=== PATIENT | female | born 1960 | race Hispanic/Latino ===

== ENCOUNTER 2023-03-31 11:56 | Day surgery (SDC) | payer OTHER ==
[2023-03-31 11:47] LABS: Absolute Lymphocytes (CBC) 1.8 K/uL (0.7-4.9); Hematocrit 38.8 % (36.0-45.0); Lymphocytes % 32.4 % (15.3-44.8); MCV 89.5 fL (80-100); MPV 6.9 fL (7.6-11.3); Platelets 482 thou/uL (152-406); RBC Red Blood Cell Count 4.33 M/uL (3.86-4.86)
--- NOTE | 2023-03-31 12:04 | RAD REPORT ---
EXAM DESCRIPTION: RAD - Chest Pa And Lat (2 Views) - 03/31/2023 11:51 am CLINICAL HISTORY: Pre op pending cholecystectomy. Hypertension COMPARISON: No comparisons TECHNIQUE: PA and lateral views of the chest were obtained. FINDINGS: The lungs are clear. Heart size is normal and central vasculature is within normal limits. No pleural effusion or pneumothorax seen. No acute bony finding noted. IMPRESSION: No acute cardiopulmonary process.
[2023-03-31 12:10] LABS: Albumin 3.3 g/dL (3.4-5.0); Bilirubin Direct 0.1 mg/dL (0-0.2); Bilirubin Indirect, Calculated 0.4 mg/dL (0.2-0.8); Bilirubin Total 0.5 mg/dL (0.2-1.0); Potassium 4.1 mEq/L (3.5-5.1); Protein, Total 7.1 g/dL (6.4-8.2)
[2023-03-31] MEDS ORDERED: CEFOXITIN SODIUM 1 GM/VIAL ONE (12:11)
[2023-03-31] MEDS ORDERED: Ringers Lactate 1,000 ML IV ONE (12:11)
[2023-03-31] MEDS ORDERED: propofoL 200 MG/20 ML VIAL IV ONE (14:10)
[2023-03-31] MEDS ORDERED: MIDAZOLAM HCL 2 MG/2 ML INJ ONE (14:10)
[2023-03-31] MEDS ORDERED: FENTANYL CITR 100 MCG/2 ML ONE ×2 (14:10→14:45)
[2023-03-31] MEDS ORDERED: ROCURONIUM 50 MG/5 ML VIAL IV ONE (14:10)
[2023-03-31] MEDS ORDERED: ONDANSETRON 4 MG/2 ML VIAL ONE (14:10)
[2023-03-31] MEDS ORDERED: LIDOCAINE 2% MPF 5 ML VIAL ONE (14:10)
[2023-03-31] MEDS ORDERED: EPHEDRINE SULF 50 MG/ML VIAL ONE (14:38)
[2023-03-31] MEDS ORDERED: dexAMETHasone 10 MG/ML VIAL ONE (14:38)
[2023-03-31] MEDS ORDERED: GLYCOPYRROLATE 0.2 MG/ML SYR ONE (14:42)
[2023-03-31] MEDS ORDERED: NEOSTIGMINE 1 MG/ML -10 ML VIAL ONE (14:58)
[2023-03-31] MEDS ORDERED: KETOROLAC 30 MG/ML INJ ONE (14:59)
--- NOTE | 2023-03-31 15:10 | P.BOP ---
Preoperative diagnosis: acute cholecystitis, symptomatic cholelithiasis Postoperative diagnosis: same Primary procedure: Laparoscopic cholecystectomy Estimated blood loss: <10c Specimen: gb Anesthesia: General Complications: None Transferred to: Recovery Room Condition: Good
[2023-03-31 15:27] VITALS: O2SAT 100
[2023-03-31 17:23] VITALS: BP 124/58; TEMP 98
--- NOTE | 2023-03-31 23:19 | OP ---
Date of Procedure: 03/31/2023 Surgeon: Cody Fan MD Preoperative Diagnoses: Acute cholecystitis, symptomatic cholelithiasis. Postoperative Diagnoses: Acute cholecystitis, symptomatic cholelithiasis. Procedure: Laparoscopic cholecystectomy. Anesthesia: General plus local. Complications: None. Estimated Blood Loss: Less than 10 cc. Indication: This is a case of a 62-year-old patient who comes to us with above diagnoses. Fully exp lained the benefits, alternatives, and risks of laparoscopic possible open cholecystectomy, which inc lude, but not limited to, infection, bleeding, damage to adjacent structures, anesthesia complication , choledocholithiasis, bile leak, pancreatitis, OR, and even . She also understands this may no t relieve symptoms. She might need more than one surgical intervention. She understood, signed the consent. Procedure In Detail: The patient was brought to the operating room, placed in supine position. Anes thesia was done without complication. Abdominal area was prepped and draped in usual sterile fashion . Marcaine 0.5% was injected for local anesthetic, followed by sharp incision of the skin in the inf raumbilical region. Incision was carried down to fascia, which was opened under direct vision. Flavia toneum was encountered, opened under direct vision. Vicryl #1 placed inside the fascia. Darrian troc ar was carefully introduced. No bleeding was obtained. I placed 3 more trocars, 5 mm each one of th em, one in the epigastric area and two in the right upper quadrant under direct visualization. This allowed me to put a grasper in the fundus of the gallbladder, another grasper in the infundibulum, re tracting the gallbladder in the inferolateral fashion exposing the triangle of Calot, obtaining criti don view. Cystic duct and cystic artery were clearly isolated, freed circumferentially, and the conn ection between those and the gallbladder were clearly identified. I proceeded to ligate those by janna mari at least 3 clips proximal and 1 clip distal, ligation in the middle. Same was done with the cysti c artery. A small little branch of the cystic artery was also ligated using same technique. Hepatic arteries and common bile duct were protected at all times. Gallbladder removed from the liver using Bovie cauterizer and removed from abdominal cavity using Endo Catch through umbilical incision. The area was inspected once again, no bile leak. No bleeding. At that moment, I proceeded to remove th e trocars under direct vision. Deflated pneumoperitoneum. Closed the fascia with #1 Vicryl. Irriga juancarlos subcutaneous tissue. Closed that with 3-0 chromic and skin in a subcuticular fashion with 3-0 ch romic and Steri-Strips on the top. Sponge count and instrument counts correct. The patient tolerate d procedure well. The patient was sent to recovery in stable condition. JONY/NORA Voice ID: [id number] Report ID: [id number]
--- NOTE | 2023-03-31 23:22 | DS ---
Date of Discharge: 03/31/2023 Diagnoses: Acute cholecystitis, symptomatic cholelithiasis. Procedure: Laparoscopic cholecystectomy. Disposition: Home. Activity: As tolerated. No heavy lifting. Followup: Follow up in my office in 1 week. Call for appointment at [phone]. Keep area dry for 48 hours, then may shower. Keep Steri-Strips intact. JONY/NORA Voice ID: [id number] Report ID: [id number]
--- NOTE | 2023-04-01 15:31 | EKG ---
Test Date: 2023-03-31 Test Time: 12:36:28 Product Merchandiser: MIRTA MEASUREMENT RESULTS: Intervals: Rate: 59 GA: 130 QRSD: 70 QT: 374 QTc: 370 Wayne: P: 72 GA: 130 QRS: 78 T: 67 INTERPRETIVE STATEMENTS: Sinus bradycardia Otherwise normal ECG No previous ECG available for comparison Electronically Signed On 04-01-23 15:27:47 [employer] by Paul Ann
== END 2023-03-31 16:55 | disposition home or self-care (01) ==
LOC: OR 11:56
PROVIDERS: ATTEND Surgery
PROC: 0FT44ZZ Resection of Gallbladder, Percutaneous Endoscopic Approach (ICD-10-PCS; principal; 2023-03-31 14:00)
DX: K80.10 Calculus of gallbladder with chronic cholecystitis without obstruction (principal); E78.00 Pure hypercholesterolemia, unspecified; F41.9 Anxiety disorder, unspecified; E05.90 Thyrotoxicosis, unspecified without thyrotoxic crisis or storm
CPT/HCPCS: 93005; 85025; 80048; 36415; 80076; 88304; 83690; 71046; 47562; J2704; J2710; J2001; J2250; J3010 ×2; J1100; J0694; J2405; J7120

== ENCOUNTER 2024-03-20 13:39 | Emergency (ER) | payer OTHER ==
--- OUTSIDE RECORDS SUMMARY | 2024-03-20 13:42 | XMS REPORT | Continuity of Care Document ---
Author Name Unknown Address [address] [place] [address] [facility] thconnect Address [address] [place] [address] Care Team Providers Care Lead Software Developer Name Role Phone ELSI CARTY Primary Care Physician Unavailab le TRITSCHLER, KEENAYAL Attending Clinician Unavaila ble TRITSCHLER, CHERYAL Attending Clinician Unavaila ble [email or web address]_S Attending Clinician Unavaila ble Doctor Unassigned, [place] Attending Clinician U navailable Radiology Attending Clinician Unavailable RADIOLOGY Attending Clinician Unavailable [email or web address]_S Admitting Clinician Unavaila ble TRITSCHLER, CHERYAL Admitting Clinician Unavaila ble Payers Payer Name Policy Type Policy Number Effective Date Expirati on Date Source [facility] [id number] 2019 00:00:00 [facility] [id number] 2003 00:00:00 Problems Condition Name Condition Details Condition Category Status Onset Date Resolution Date Last Treatment Date Treating Clinician Comments Source Breast cancer screening by mammogram Breast cancer screening by mammogram Disease Active 10-09 00:00: 00 [facility] Need for vaccinatio n Need for vaccinatio n Disease Active 10-09 00:00: 00 [facility] Screening for malignant neoplasm of the cervix Screening for malignant neoplasm of the cervix Disease Active 10-09 00:00: 00 [facility] Allergies, Adverse Reactions, Alerts Allergy Name Allergy Type Status Severity Reaction(s) Onset Date Inactive Date Treating Clinician Comments Source NO KNOWN ALLERGIE S Drug Class Active [facility] Social History Social Habit Start Date Stop Date Quantity Comments Source [facility] Sexual orientation U niversity [facility] Alcohol intake 2022-12-27 00:00:00 2022-12-27 00:00:00 Current drinker of alcohol (finding) [facility] Alcohol Comment 2022-10-12 00:00:00 2022-10-12 00:00:00 ocassionaly [facility] Tobacco use and exposure 2022-10-12 00:00:00 2022-10-12 00:00:00 Smokeless tobacco non-user [facility] Exposure to SARS-CoV-2 (event) 2021-10-30 00:00:00 2021-11-09 11:01:00 Not sure [facility] History of Social function 2021-10-09 00:00:00 2021-10-09 00:00:00 [facility] Sex Ass[birth year] At 1960 00:00:00 1960 00:00:00 [facility] Smoking Status Start Date Stop Date Source Never smoked tobacco [facility] Medications Ordered Medication Name Filled Medication Name Start Date Stop Date Current Medication? Ordering Clinician Indication Dosage Frequency Signature (SIG) Comments Components Source levothyroxi ne 50 mcg tablet 05-05 00:00: 00 Yes 50ug Take 50 mcg by mouth. [facility] DULoxetine 30 mg capsule 2 00:00: 00 Yes 30mg Take 30 mg by mouth. [facility] fenofibrate 145 mg tablet 1- 00:00: 00 Yes ORAL TAKE 1 TABLET BY MOUTH EVERY DAY. PT NEEDS APPT! [facility] Immunizations Ordered Immunization Name Filled Immunization Name Date Status Comments Source Influenza Virus Vaccine Quad .5 mL IM 6+ MO 2022-01-28 00:00:00 Completed [facility] Influenza Virus Vaccine Quad .5 mL IM 6+ MO (FLUZONE/FLULAVAL/F LUARIX) Unknown Completed [facility] Influenza Virus Vaccine Quad .5 mL IM 6+ MO (FLUZONE/FLULAVAL/F LUARIX) Unknown Completed [facility] Vital Signs Vital Name Observation Time Observation Value Comments S ource Systolic blood pressure 2022-10-12 13:16:00 121 mm[Hg] [facility] Diastolic blood pressure 2022-10-12 13:16:00 79 mm[Hg] [facility] Heart rate 2022-10-12 13:16:00 67 /min [facility] Body temperature 2022-10-12 13:16:00 36.72 Alexandra [facility] Respiratory rate 2022-10-12 13:16:00 18 /min [facility] Body height 2022-10-12 13:16:00 165.1 cm [facility] Body weight 2022-10-12 13:16:00 67.223 kg [facility] BMI 2022-10-12 13:16:00 24.66 kg/m2 [facility] Systolic blood pressure 2021-10-09 13:35:00 121 mm[Hg] [facility] Diastolic blood pressure 2021-10-09 13:35:00 81 mm[Hg] [facility] Heart rate 2021-10-09 13:35:00 65 /min [facility] Respiratory rate 2021-10-09 13:35:00 18 /min [facility] Body height 2021-10-09 13:35:00 165.1 cm [facility] Body weight 2021-10-09 13:35:00 69.514 kg [facility] BMI 2021-10-09 13:35:00 25.50 kg/m2 [facility] Oxygen saturation in Arterial blood by Pulse oximetry 2021-10-09 13:35:00 98 /min [facility] Procedures Procedure Date / Time Performed Performing Clinician Source BI SCREENING TOMOSYNTHESIS BILATERAL 2022-12-27 13:27:48 Jose Salguero [facility] ASSIGNMENT OF BENEFITS 2022-12-27 13:05:05 Docto r Unassigned, [place] [facility] XR LUMBAR SPINE 3 VW 2022-02-15 19:53:51 Blanka Carty [facility] NOTICE OF PRIVACY PRACTICES 2022-02-15 19:21:37 Doctor Unassigned, [place] [facility] ASSIGNMENT OF BENEFITS 2021-11-09 15:56:03 Docto r Unassigned, [place] [facility] Encounters Start Date/Time End Date/Time Encounter Type Admission Type Attending [facility] Care Department Encounter ID Source 2023-10-13 08:00:00 2023-10-13 08:00:00 Outpatient JOSE VELARDE [facility] [id number] [facility] 2023-05-24 00:00:00 2023-05-24 00:00:00 Outpatient GC_GCBZW_Ka diyala_S PRIV PRIV [id number] [facility] 2023-05-03 00:00:00 2023-05-03 00:00:00 Outpatient GC_GCBZW_Ka diyala_S PRIV PRIV [id number] [facility] 2023-05-02 00:00:00 2023-05-02 00:00:00 Outpatient GC_GCBZW_Ka diyala_S PRIV PRIV [id number] [facility] 2023-04-27 00:00:00 2023-04-27 00:00:00 Outpatient GC_GCBZW_Ka diyala_S PRIV PRIV [id number] [facility] 2023-04-20 00:00:00 2023-04-20 00:00:00 Outpatient GC_GCBZW_Ka diyala_S PRIV PRIV [id number] [facility] 2023-02-09 00:00:00 2023-02-09 00:00:00 Outpatient GC_GCBZW_Ka diyala_S PRIV PRIV [id number] [facility] 2023-01-29 00:00:00 2023-01-29 00:00:00 Outpatient GC_GCBZW_Ka diyala_S PRIV PRIV [id number] [facility] 2022-12-27 08:06:12 2022-12-27 23:59:00 Outpatient R JOSE SALGUERO [facility] [id number] [facility] 2022-12-27 08:06:12 2022-12-27 23:59:00 Hospital Encounter Jose Salguero [facility] [id number] [id number] [id number] [facility] 2022-12-27 00:00:00 2022-12-27 00:00:00 Orders Only Doctor Unassigned, [place] [facility] [id number] 350.1.13.10 [id number] [id number] [facility] 2022-10-19 00:00:00 2022-10-19 00:00:00 Outpatient R JOSE SALGUERO [facility] [id number] [facility] 2022-10-12 08:00:00 2022-10-12 08:29:40 Outpatient R JOSE SALGUERO [facility] [id number] [facility] 2022-10-12 08:00:00 2022-10-12 08:29:40 Office Visit Jose [facility]gu[facility] [id number] [id number] [id number] [id number] [facility] 2022-10-11 08:00:00 2022-10-11 08:00:00 Outpatient R JOSE SALGUERO [facility] [id number] [facility] 2022-02-15 13:22:17 2022-02-15 23:59:00 Hospital Encounter Radiology [facility] [id number] 350.1.13.10 4.2.7.2.686 [id number] [facility] 2022-02-15 13:21:48 2022-02-15 13:21:48 Outpatient R RADIOLOGY [facility] [id number] [facility] 2022-02-15 13:21:48 2022-02-15 13:21:48 Hospital Encounter Radiology [facility] [id number] 350.1.13.10 4.2.7.2.686 [id number] [facility] 2022-02-15 00:00:00 2022-02-15 00:00:00 Orders Only Doctor Unassigned, [place] [facility] [id number] 350.1.13.10 4.2.7.2.686 [id number] [facility] 2021-11-09 11:02:29 2021-11-09 23:59:00 [facility] [id number] [facility] 2021-11-09 11:00:00 2021-11-09 23:59:00 Hospital Encounter Jose Salguero [facility] [id number] 350.1.13.10 4.2.7.2.686 [id number] [facility] 2021-11-09 00:00:00 2021-11-09 00:00:00 Orders Only Doctor Unassigned, [place] [facility] [id number] 350.1.13.10 4.2.7.2.686 [id number] [facility] 2021-10-30 00:00:00 2021-10-30 00:00:00 Telephone Jose Salguero [facility] [id number] 350.1.13.10 4.2.7.2.686 [id number] [facility] 2021-10-09 08:00:00 2021-10-09 08:54:02 Office Visit Jose Salguero [facility] [id number] 350.1.13.10 4.2.7.2.686 [id number] [facility] 2021-10-09 08:00:00 2021-10-09 08:54:02 Outpatient JOSE VELARDE [facility] [id number] [facility] 2021-10-09 08:00:00 2021-10-09 08:54:02 Outpatient JOSE VELARDE [facility] [id number] [facility] 2021-10-09 08:00:00 2021-10-09 08:00:00 Outpatient JOSE VELARDE [facility] [id number] [facility]
--- NOTE | 2024-03-20 14:25 | RAD REPORT ---
Exam:Pelvis CLINICAL HISTORY: Pelvic pain FINDINGS: No fracture or dislocation seen
--- NOTE | 2024-03-20 14:26 | RAD REPORT ---
Exam:Hip Left 2 View HISTORY: Left hip pain FINDINGS: No fracture or dislocation seen. Osteoporosis If the patient continues to have symptoms to suggest an occult fracture then MRI would be recommended
--- NOTE | 2024-03-20 14:27 | RAD REPORT ---
Exam:Shoulder Left 2+ Views HISTORY: Left shoulder pain FINDINGS: No fracture or dislocation seen The humeral head is high riding which may indicate a chronic rotator cuff tear.
[2024-03-20] MEDS ORDERED: KETOROLAC 30 MG/ML INJ ONE (15:22)
--- NOTE | 2024-03-20 15:47 | RAD REPORT ---
EXAMINATION: CT PELVIS WITHOUT CONTRAST CLINICAL INDICATION: Pelvic pain TECHNIQUE: CT pelvis was performed, without IV contrast, as per department protocol. Axial, sagittal and coronal reconstructions were obtained. One or more of the following dose reduction techniques were used: Automated exposure control, adjustment of the mA and/or kV according to patient size, and/ or iterative reconstruction. Unless otherwise specified, incidental findings do not require dedicated imaging follow-up. COMPARISON: X-ray March 20, 2024 FINDINGS: No fracture visualized. No dislocation No significant hip joint effusion seen. Mild contusion within the subcutaneous tissues left flank. Small left inguinal hernia. Upyrs-[id number] right inguinal hernia. IMPRESSION: No fracture seen. Mild contusion within the subcutaneous tissues left flank. If the patient continues to have symptoms to suggest an occult fracture MRI would be recommended
--- NOTE | 2024-03-20 15:58 | EDPHYS ---
Physician Documentation [facility] Name: Erin Hawkins Age: 63 yrs Sex: Female : 1960 Arrival Date: 03/20/2024 Time: 13:39 Bed 11 Private MD: ED Physician Dev Pedroza HPI: 03/20 14:49 This 63 yrs old Female presents to ER via Ambulatory with complaints of Fall kb Injury. 14:49 Pt is a 63 year old female who presents for headache, left shoulder and left hip/groin kb pain after falling 2 days ago. Pt was walking in [place] on uneven streets and fell onto left side. States she hit the left side of her head. Denies loc, nausea, vomiting. States she was seen at an ER in [place] afterwards. Had CT head and xrays which were normal, but is still having pain. . Historical: - Allergies: 13:50 No Known Allergies; tm6 - PMHx: 13:50 Hypothyroidism; Anxiety; Hypercholesterolemia; tm6 - PSHx: 13:50 back; Cholecystectomy; shoulder; tm6 - Immunization history:: Flu vaccine is up to date. - Infectious Disease History:: Denies. - Social history:: Smoking status: Patient denies any tobacco usage or history of. ROS: 14:47 Constitutional: As per HPI kb Exam: 14:47 Constitutional: This is a well developed, well nourished patient who is awake, alert, kb and in no acute distress. Head/Face: Normocephalic, atraumatic. ENT: Moist Mucous membranes Cardiovascular: Regular rate Respiratory: Respirations even and unlabored. No increased work of breathing. Talking in full sentences Abdomen/GI: Soft, non-tender. No distention Skin: Warm, dry with normal turgor. Normal color. Neuro: Awake and alert, GCS 15, oriented to person, place, time, and situation. 14:47 Musculoskeletal/extremity: Extremities: grossly normal except: noted in the left hip: pain, noted in the posterior aspect of left shoulder: decreased ROM, pain, tenderness, ROM: intact in all extremities, limited active range of motion due to pain, in the anterior aspect of left shoulder and left hip, Circulation is intact in all extremities. Sensation intact. Weight bearing: able to fully bear weight, Vital Signs: 13:51 Resp 17; Temp 98.5(O); Pain 5/10; tm6 13:51 BP 147 / 86; Pulse 70; Pulse Ox 99% on R/A; MAP 101 mmHg; tm6 13:51 Pain Scale: Adult tm6 MDM: 13:42 Medical Screening Exam initiated kb 14:48 Differential diagnosis: contusion, fracture, strain. Data reviewed: vital signs, nurses kb notes. Counseling: I had a detailed discussion with the patient and/or guardian regarding the historical points, exam findings, and any diagnostic results supporting the discharge/admit diagnosis, radiology results, the need for outpatient follow up, a family practitioner, to return to the emergency department if symptoms worsen or persist or if there are any questions or concerns that arise at home. 14:49 External Records Reviewed: Outside ED record: CT head normal, xrays without acute kb findings. . 03/20 13:52 Order name: Hip Left 2 View XRAY; Complete Time: 14:27 kb 03/20 13:52 Order name: Pelvis XRAY; Complete Time: 14:26 kb 03/20 13:52 Order name: Shoulder Left (2 View) XRAY; Complete Time: 14:28 kb 03/20 14:54 Order name: CT Pelvis wo Cont; Complete Time: 15:48 kb Administered Medications: 15:29 Drug: Ketorolac IM 30 mg IM once Route: IM; Site: right deltoid; jb4 16:20 Follow up: Response: No adverse reaction; Marked relief of symptoms; Pain is decreased jb4 Disposition: 18:11 Co-signature as Attending Physician, Dev Pedroza MD I reviewed the patient's care rn provided by the Advanced Practice Provider and agree with the diagnosis and treatment plan. Disposition Summary: 03/20/24 15:57 Discharge Ordered Notes: Location: Home kb Condition: Stable kb Diagnosis - Unspecified injury of head, initial encounter kb - Pain in left shoulder kb - Contusion of left hip kb Followup: kb - With: Emergency Department - When: As needed - Reason: Worsening of condition Followup: kb - With: Private Physician - When: 2 - 3 days - Reason: Recheck today's complaints, Continuance of care, Re-evaluation by your physician Discharge Instructions: - Discharge Summary Sheet kb - Shoulder Pain, [id number] kb - Contusion, Gjpb-ci-Jugj kb - Head Injury, Adult, Yoym-fh-Sywn kb Forms: - Medication Reconciliation Form kb - Antibiotic Education kb - Prescription Opioid Use kb - Patient Portal Instructions kb - Leadership Thank You Letter kb Prescriptions: - Diclofenac Sodium 75 mg Oral tablet, delayed release (enteric coated) - take 1 tablet ORAL route 2 times per day As needed; 30 tablet; Refills: 0, kb Product Selection Permitted - orphenadrine citrate 100 mg Oral Tablet Sustained Release - take 1 tablet ORAL route 2 times per day As needed; 20 tablet; Refills: 0, kb Product Selection Permitted Signatures: Dispatcher [employer] Linda Paulino, [employer] [employer] Dev Pedroza MD MD rn Bryson, James RN RN jb4 Basim De La Fuente RN RN tm6
--- NOTE | 2024-03-20 15:58 | ER ---
Nurse's Notes [facility] Name: Erin Hawkins Age: 63 yrs Sex: Female : 1960 Arrival Date: 03/20/2024 Time: 13:39 Bed 11 Private MD: Diagnosis: Unspecified injury of head, initial encounter;Pain in left shoulder;Contusion of left hip Presentation: 03/20 13:46 Chief complaint: Patient states: I tripped and fell on left side 3 days ago. Landed on tm6 left hip and left shoulder. Bruise on left hip. It is difficult to sleep due to the pain in my hip and shoulder. I also hit my head, but I went to the emergency room at the time and got a CT and got checked out. Coronavirus screen: Client denies travel out of the [place] in the last 14 days. Ebola Screen: Patient negative for fever greater than or equal to 101.5 degrees Fahrenheit, and additional compatible Ebola Virus Disease symptoms Patient denies exposure to infectious person. Patient denies travel to an Ebola-affected area in the 21 days before illness onset. No symptoms or risks identified at this time. Initial Sepsis Screen:. Risk Assessment: Do you want to hurt yourself or someone else? Patient reports no desire to harm self or others. Onset of symptoms was March 17, 2024. 13:46 Method Of Arrival: Ambulatory tm6 13:46 Acuity: LEAH 4 tm6 13:51 Initial Sepsis Screen: Does the patient meet any 2 criteria? No. Patient's initial tm6 sepsis screen is negative. Does the patient have a suspected source of infection? No. Patient's initial sepsis screen is negative. Triage Assessment: 13:46 General: Appears in no apparent distress. Behavior is calm, cooperative. Pain: tm6 Complains of pain in left hip, anterior aspect of left shoulder and posterior aspect of left shoulder Pain began 2-3 days ago. EENT: No signs and/or symptoms were reported regarding the EENT system. Neuro: Level of Consciousness is awake, alert, obeys commands, Oriented to person, place, time, situation. Cardiovascular: Patient's skin is warm and dry. Respiratory: Airway is patent Respiratory effort is even, unlabored, Respiratory pattern is regular, symmetrical. GI: No signs and/or symptoms were reported involving the gastrointestinal system. Abdomen is flat, non-distended. : No signs and/or symptoms were reported regarding the genitourinary system. Derm: No signs and/or symptoms reported regarding the dermatologic system. Musculoskeletal: Reports pain in left hip, anterior aspect of left shoulder and posterior aspect of left shoulder Pain is 5 out of 10 on a pain scale. Historical: - Allergies: 13:50 No Known Allergies; tm6 - PMHx: 13:50 Hypothyroidism; Anxiety; Hypercholesterolemia; tm6 - PSHx: 13:50 back; Cholecystectomy; shoulder; tm6 - Immunization history:: Flu vaccine is up to date. - Infectious Disease History:: Denies. - Social history:: Smoking status: Patient denies any tobacco usage or history of. Screenin:31 [facility] ED Fall Risk Assessment (Adult) History of falling in the last 3 months, jb4 including since admission No falls in past 3 months (0 pts) Confusion or Disorientation No (0 pts) Intoxicated or Sedated No (0 pts) Impaired Gait No (0 pts) Mobility Assist Device Used No (0 pt) Altered Elimination No (0 pt) Score/Fall Risk Level 0 - 2 = Low Risk Oriented to surroundings, Maintained a safe environment. Abuse screen: Denies threats or abuse. Nutritional screening: No deficits noted. Tuberculosis screening: No symptoms or risk factors identified. Assessment: 15:31 General: Appears in no apparent distress. comfortable, Behavior is calm, cooperative, jb4 appropriate for age. Pain: Complains of pain in left hip and anterior aspect of left shoulder Pain does not radiate. Pain currently is 5 out of 10 on a pain scale. Neuro: Level of Consciousness is awake, alert, obeys commands, Oriented to person, place, time, situation. Cardiovascular: Patient's skin is warm and dry. Respiratory: Airway is patent Respiratory effort is even, unlabored, Respiratory pattern is regular, symmetrical. GI: No signs and/or symptoms were reported involving the gastrointestinal system. : No signs and/or symptoms were reported regarding the genitourinary system. Derm: Skin is intact, Skin is pink, warm \T\ dry. Musculoskeletal: Circulation, motion, and sensation intact. Range of motion: intact in all extremities. Vital Signs: 13:51 Resp 17; Temp 98.5(O); Pain 5/10; tm6 13:51 BP 147 / 86; Pulse 70; Pulse Ox 99% on R/A; MAP 101 mmHg; tm6 13:51 Pain Scale: Adult tm6 ED Course: 13:41 Patient arrived in ED. im 13:42 Linda Martin FNP-C [facility]. kb 13:42 Dev Pedroza MD is Attending Physician. kb 13:48 Triage completed. tm6 13:49 Arm band placed on right wrist. tm6 14:10 Hip Left 2 View XRAY In Process Unspecified. EDMS 14:10 Pelvis XRAY In Process Unspecified. EDMS 14:10 Shoulder Left (2 View) XRAY In Process Unspecified. EDMS 15:14 CT Pelvis wo Cont In Process Unspecified. EDMS 15:31 Patient has correct armband on for positive identification. Bed in low position. Call jb4 light in reach. Side rails up X 1. Provided Education on: plan of care. 16:20 No provider procedures requiring assistance completed. Patient did not have IV access jb4 during this emergency room visit. Administered Medications: 15:29 Drug: Ketorolac IM 30 mg IM once Route: IM; Site: right deltoid; jb4 16:20 Follow up: Response: No adverse reaction; Marked relief of symptoms; Pain is decreased jb4 Medication: 15:31 VIS not applicable for this client. jb4 Outcome: 15:57 Discharge ordered by . kb 16:20 Discharged to home ambulatory, jb4 16:20 Condition: stable 16:20 Discharge instructions given to patient, Instructed on discharge instructions, follow up and referral plans. no drinking with medication, no driving heavy equipment, medication usage, Demonstrated understanding of instructions, follow-up care, medications, Prescriptions given X 2, 16:20 Patient left the ED. jb4 Signatures: Dispatcher [employer] EDMS Linda Martin FNP-C FNP-Ckb Bryson, James RN RN jb4 Ashley Maldonado Tawney, RN RN tm6
[2024-03-20 16:27] VITALS: BP 147/86; TEMP 98.5; O2SAT 99
== END 2024-03-20 16:20 | disposition home or self-care (01) ==
LOC: ER 13:39
DX: S09.90XA Unspecified injury of head, initial encounter (principal); S70.02XA Contusion of left hip, initial encounter; M25.512 Pain in left shoulder; W18.30XA Fall on same level, unspecified, initial encounter
CPT/HCPCS: 72170; 72192; 96372; 99284